=== PATIENT | female | born 1995 | race Caucasian/White ===

== ENCOUNTER 2016-12-02 10:55 | Day surgery (SDC) | payer BC ==
[~2016-12-02 10:55] MED LIST: BUPIVACAINE 0.5% 30 ML SDV ONE; ceFAZolin 2 GM/DEXTROSE 100 ML IV ONE
[2016-12-02] MEDS ORDERED: LIDOCAINE 1% 30 ML SDV ONE (12:00)
[2016-12-02] MEDS ORDERED: CEFAZOLIN 2 GM/DEXTROSE/100 ML BAG IV ONE (12:00)
[2016-12-02] MEDS ORDERED: BUPIVACAINE 0.5% 30 ML SDV ONE (12:01)
[2016-12-02] MEDS ORDERED: MIDAZOLAM 2 MG/2 ML VIAL ONE (12:09)
[2016-12-02] MEDS ORDERED: fentaNYL 100 MCG/2 ML INJ ONE ×3 (12:11→13:55)
[2016-12-02] MEDS ORDERED: PROPOFOL 200 MG/20 ML VIAL ONE (12:12)
[2016-12-02] MEDS ORDERED: PROPOFOL/EMULSION 500 MG/50 ML BOTTLE IV ONE (12:12)
[2016-12-02] MEDS ORDERED: LR 1,000 ML IV ONE (12:14)
[2016-12-02] MEDS ORDERED: ONDANSETRON 4 MG/2 ML VIAL ONE ×2 (13:20→14:39)
[2016-12-02] MEDS ORDERED: PHENYLEPHRINE 0.5% NASAL 15 ML SPRAY ONE (13:24)
[2016-12-02] MEDS ORDERED: oxyCODONE IR 5 MG TAB ONE (14:25)
--- NOTE | 2017-01-06 15:41 | GOP ---
[f rep st] OPERATIVE REPORT DATE OF OPERATION: 12/02/2016 SURGEON: Dinora Richmond MD ANESTHESIOLOGIST: Linda Forrest MD. PREOPERATIVE DIAGNOSIS: Hypotension requiring port. She has developed chest pain, and the tip of the port appears deep POSTOPERATIVE DIAGNOSIS: Hypotension requiring port. She has developed chest pain, and the tip of the port appears deep PROCEDURE PERFORMED: Port revision. FINDINGS: No unusual findings. SPECIMENS: None. ESTIMATED BLOOD LOSS: 5 cc. INDICATIONS: The patient is a 21-year-old woman who requires a port for bolus of IV fluids. She recently developed chest pain, and an x-ray showed the port was deep. It was functioning well. She presents for port revision. DESCRIPTION OF PROCEDURE: The patient was brought into the operating room, placed supine on the table, and general anesthesia was administered. Her arm and neck were prepped and draped in usual sterile fashion. I infiltrated the area with 0.5% Marcaine prior to making incisions. I made the incision over the port. I dissected around the port, and I created a new pocket for it more distally in her arm. I sutured the port down. Fluoroscopy shows the port in the distal SVC/RA junction. Pocket was closed with 3-0 Vicryl followed by 4-0 Monocryl. Dermabond was applied. /[id number]/MODL MTDD
== END 2016-12-02 14:58 | disposition home or self-care (01) ==
LOC: FSGY 10:55
PROVIDERS: ATTEND Surgery
PROC: 0JH60XZ Insertion of Tunneled Vascular Access Device into Chest Subcutaneous Tissue and Fascia, Open Approach (ICD-10-PCS; principal; 2016-12-02 12:00)
PROC: 05PY03Z Removal of Infusion Device from Upper Vein, Open Approach (ICD-10-PCS; principal; 2016-12-02 12:00)
DX: T82.898A Other specified complication of vascular prosthetic devices, implants and grafts, initial encounter (principal); I95.1 Orthostatic hypotension; Q79.6 Ehlers-Danlos syndromes; D50.9 Iron deficiency anemia, unspecified; R07.81 Pleurodynia; G93.2 Benign intracranial hypertension; Q07.00 Arnold-Chiari syndrome without spina bifida or hydrocephalus; R10.9 Unspecified abdominal pain; G90.9 Disorder of the autonomic nervous system, unspecified; R53.83 Other fatigue; E27.40 Unspecified adrenocortical insufficiency; R00.1 Bradycardia, unspecified; R13.10 Dysphagia, unspecified
CPT/HCPCS: J0690; J1642; J2250; J2405; J2704; J3010

== ENCOUNTER → 2018-08-13 | Outpatient (CLI) | payer BC ==
[~2018-08-13] MED LIST changes: -BUPIVACAINE 0.5% 30 ML SDV ONE; +IOPAMIDOL (ISOVUE 370) 100 ML BTL IV ONE; -ceFAZolin 2 GM/DEXTROSE 100 ML IV ONE
== END ==
LOC: FIMAGING 16:09
PROVIDERS: ATTEND Surgery
PROC: B214YZZ Fluoroscopy of Right Heart using Other Contrast (ICD-10-PCS; principal; 2018-08-13)
DX: T82.848A Pain due to vascular prosthetic devices, implants and grafts, initial encounter (principal); Y84.8 Other medical procedures as the cause of abnormal reaction of the patient, or of later complication, without mention of misadventure at the time of the procedure; G89.4 Chronic pain syndrome
CPT/HCPCS: Q9967

== ENCOUNTER 2018-08-19 05:55 | Day surgery (SDC) | payer BC ==
[2018-08-19] MEDS ORDERED: LR 1,000 ML IV ONE (06:22)
[2018-08-19] MEDS ORDERED: LIDOCAINE 1% 300 MG/30 ML SDV ONE (06:58)
[2018-08-19] MEDS ORDERED: BUPIVACAINE 0.5% 30 ML SDV ONE (06:58)
--- NOTE | 2018-08-19 07:00 | PDHPUP ---
History & Physical Update H&P update statement: This history and physical update is based on an assessment of the patient which was completed after admission or registration (within 24 hours), but prior to the surgery/procedure. H&P update: H&P reviewed & patient examined, no change in patient's condition since H&P completed
[2018-08-19] MEDS ORDERED: fentaNYL 250 MCG/5 ML INJ ONE (07:10)
[2018-08-19] MEDS ORDERED: PROPOFOL/EMULSION 500 MG/50 ML BOTTLE IV ONE (07:11)
[2018-08-19] MEDS ORDERED: MIDAZOLAM 2 MG/2 ML VIAL ONE (07:12)
[2018-08-19] MEDS ORDERED: HYDROCODONE/APAP 5/325 TAB PO PRN (08:05)
[2018-08-19] MEDS ORDERED: fentaNYL 100 MCG/2 ML INJ IVP PRN (08:05)
[2018-08-19] MEDS ORDERED: PHENYLEPHRINE HCL 100 MCG/ML SYR IVP PRN (08:05)
[2018-08-19] MEDS ORDERED: NALOXONE HCL 0.4 MG/ML INJ IVP PRN (08:05)
--- NOTE | 2018-08-19 08:05 | PDANEPAE ---
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 ANE Past Medical History - Cardiovascular History Hx Hypertension: No Hx Arrhythmias: No Hx Chest Pain: No Hx Coronary Artery / Peripheral Vascular Disease: No Hx CHF / Valvular Disease: No Hx Palpitations: No Cardiovascular History Comment: ORTHOSTATIC HYPOTENSION - GETS FLUIDS. POTS SYNDROME - Pulmonary History Hx COPD: No Hx Asthma/Reactive Airway Disease: No Hx Recent Upper Respiratory Infection: No Hx Oxygen in Use at Home: Yes Hx Sleep Apnea: No Sleep Apnea Screening Result - Last Documented: Negative Pulmonary History Comment: D/T MEDICATIONS. O2 AT [facility] - Neurologic History Hx Cerebrovascular Accident: No Hx Seizures: No Hx Dementia: No - Endocrine History Hx Diabetes: Yes Endocrine History Comment: THYROID TUMOR REMOVED 2009 - Renal History Hx Renal Disorders: No - Liver History Hx Hepatic Disorders: Yes Hepatic History Comment: CHOLECYSTECTOMY 2009 - Neurological & Psychiatric Hx Hx Neurological and Psychiatric Disorders: No - Cancer History Hx Cancer: No - Congenital Disorder History Hx Congenital Disorders: Yes Congenital History Comment: CHRISTIAN DANLOS SYNDROME - GI History Hx Gastrointestinal Disorders: Yes Gastrointestinal History Comment: CONSTIPATION. 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 PORT PLACEMENT R ARM 2015. SPINAL CORD STIMULATOR 2. CHIARI MALFORMATION DECOMPRESSION. SPINAL CORD SURG. FUSION OCCIPUT TO C2. V-P SHUNT FOR HYDROCEPHALUS. TUMOR REMOVED THYROID. CHOLECYSTECTOMY ANE Review of Systems Review of systems is: negative Review of Systems: - Exercise capacity METS (RN): 1 METS ANE Patient History - Allergies Allergies/Adverse Reactions: adhesive Allergy (Verified 08/19/18 07:06) Hives IV CONTRAST Allergy (Uncoded 08/19/18 07:06) Hives - Home Medications Home Medications: Amitiza 24 mcg (RX) 24 mcg PO BID 12/07/15 [Last Taken 01/04/16] Bentyl 20 MG (RX) 20 mg PO PRN 12/07/15 [Last Taken 01/03/16] Colace 100 MG (OTC) 100 mg PO TID 12/07/15 [Last Taken 01/04/16] Gabapentin 900 mg PO TID 12/07/15 [Last Taken 01/04/16] Hydrocortisone 10 mg PO TID 12/07/15 [Last Taken 01/04/16] Levothyroxine 125 mg PO DAILY 12/07/15 [Last Taken 01/04/16] Methadone 5 mg (RX) 15 mg PO BID 12/07/15 [Last Taken 01/04/16] Miralax 17 gm (OTC) 17 gm PO DAILY PRN 12/07/15 [Last Taken 12/07/15] Valium 10 MG (RX) 10 mg PO QID PRN 12/07/15 [Last Taken 01/04/16] Vitamin D3 5,000 iunits PO DAILY 12/07/15 [Last Taken 08/12/18] Zofran 8 mg SL Q8H PRN 12/07/15 [Last Taken 01/03/16] Zolpidem Tartrate 12.5 mg PO HS 12/07/15 [Last Taken 08/18/18] Oxycodone HCl 15 mg PO Q4-6PRN PRN 12/01/16 [Last Taken Unknown] Plavix 75 mg PO DAILY 12/01/16 [Last Taken 08/12/18] Carafate 1 GM (*) 1 gm PO DAILY 08/18/18 [Last Taken Unknown] Eliquis 5 mg PO BID 08/18/18 [Last Taken Unknown] Metoprolol Tartrate 25 mg PO DAILY 08/18/18 [Last Taken Unknown] Metoprolol Tartrate 50 mg PO DAILY 08/18/18 [Last Taken Unknown] Normal Saline 2 l IV DAILY 08/18/18 [Last Taken Unknown] Omeprazole 40 mg PO BID 08/18/18 [Last Taken Unknown] Ranitidine HCl 300 mg PO BID 08/18/18 [Last Taken Unknown] Topiramate 100 mg PO QID 08/18/18 [Last Taken Unknown] - NPO status NPO Since - Liquids (Date): 08/19/18 NPO Since - Liquids (Time): 04:00 NPO Since - Solids (Date): 08/18/18 NPO Since - Solids (Time): 19:00 - Smoking Hx Smoking Status: Never smoked - Family Anes Hx Family Hx Anesthesia Complications: NEG ANE Labs/Vital Signs - Vital Signs Blood Pressure: 89/65 Heart Rate: 82 Respiratory Rate: 16 O2 Sat (%): 95 Height: 162.56 cm Weight: 89.811 kg ANE Physical Exam - Airway Neck exam: decreased ROM Mallampati Score: Class 2 Mouth exam: normal dental/mouth exam - Pulmonary Pulmonary: no respiratory distress - Cardiovascular Cardiovascular: regular rate and rhythym - ASA Status ASA Status: III ANE Anesthesia Plan Anesthesia Plan: MAC
[2018-08-19] MEDS ORDERED: IOPAMIDOL (ISOVUE-M 200) 20 ML VIAL ONE (08:24)
[2018-08-19] MEDS ORDERED: IOTHALAMATE MEG (CONRAY) 50 ML VIAL IV ONE (08:24)
--- NOTE | 2018-08-19 09:27 | POSTOPPROG ---
Post Op Note Date of Operation: 08/19/18 Surgeon: Dinora Richmond Anesthesiologist: americo Anesthesia: IV Sedation Pre-op Diagnosis: POTS, EDS, Post-op Diagnosis: same Indication: 22 year old with multiple co-morbidities. catheter in ventricle and chest Procedure: port removal and replacement Findings: collaterals and possible stenosis Inf/Abcess present in the surg proc area at time of surgery?: No Depth: Superfical (Skin SQ) EBL: 50-100 Specimen(s): none
--- NOTE | 2018-08-19 10:18 | GOP ---
[f rep st] OPERATIVE REPORT DATE OF OPERATION: 08/19/2018 SURGEON: Dinora Richmond MD ANESTHESIA: General. ANESTHESIOLOGIST: Maggie Ball MD. PREOPERATIVE DIAGNOSIS: Postural orthostatic hypotension, Qian-Danlos syndrome and chest pain with port infusions. POSTOPERATIVE DIAGNOSIS: Postural orthostatic hypotension, Qian-Danlos syndrome and chest pain wit h port infusions. PROCEDURE PERFORMED: Port removal and replacement. FINDINGS: Collaterals by the innominate and possible stenosis. SPECIMENS: None. ESTIMATED BLOOD LOSS: 100 cc. INDICATIONS: The patient is a 22-year-old woman with multiple comorbidities. She requires a port fo r infusions. More recently she has noticed more chest discomfort. A portogram was obtained which sh owed the port deep in her ventricle. We discussed just pulling the port back a couple of cm. She wo uld like to have it revised. DESCRIPTION OF PROCEDURE: Patient was brought into the operating room, placed supine on the table, a nd monitored anesthesia care with IV sedation/general was performed. Her right arm was prepped and d raped in the usual sterile fashion. I infiltrated the area with 0.5% Marcaine mixed with 1% lidocain e. I made an ellipse around the previous scar. I dissected down to the level of the port. I remove d the port. I threaded a wire through the catheter and removed the previous catheter. Placement was confirmed in the right ventricle with fluoroscopy. I tried to direct this into the IVC but was unabl e to do so. I threaded the Glidewire and again attempted placement into the IVC. I removed the cath eter. I then cut a new catheter to size and tried to slide this over the Glidewire and I was unable to make the corner around the axilla. I repositioned her arm and was unable to do so. I called my Dr. Julito lewis to assist as I felt that there was some tightening in this area. Please see his operative note for the details of the port catheter placement. After Dr. Vila was able to perform a variety of maneuvers to get the Glidewire into the IVC and the catheter could be placed over the Glidewire, I then connected the port and peeled away the sheath. P lacement was confirmed with fluoroscopy. I anchored the port to her previous capsule with 3-0 Prolen e x2 sutures. I then closed the skin with 3-0 Vicryl followed by 4-0 Monocryl. Steri-Strips was carina lied. I then accessed the port with good withdrawal of blood and I flushed it with heparin. Placeme nt again was confirmed with fluoroscopy. I placed a sterile dressing over the site. She was awakene d in the operating room, transferred to PACU in stable condition. /[id number]/MODL
[2018-08-19 10:30] VITALS: BP 117/93
== END 2018-08-19 10:43 | disposition home or self-care (01) ==
LOC: FSGY 05:55
PROVIDERS: ATTEND Surgery
DX: I95.1 Orthostatic hypotension (principal); R07.89 Other chest pain; Q79.6 Ehlers-Danlos syndromes
CPT/HCPCS: 36582; 71045; C1769; C1788; J1642; J2250; J2704; J3010; Q9961; Q9966